=== PATIENT | male | born 1960 | race African-American/Black ===

== ENCOUNTER 2016-09-21 14:39 | Emergency (ER) | payer OTHER ==
[2016-09-21 14:44] VITALS: BP 162/99; PULSE 86; TEMP 98.3; BMI 26.3
[2016-09-21] MEDS ORDERED: ALBUTEROL SO4 2.5/IPRATROPIUM 0.5 INH SOL 3 ML VIAL.NEB. NEB ONE (16:55)
--- NOTE | 2016-09-21 16:55 | PDOC ---
History of Present Illness - General Chief Complaint: Cold Symptoms Stated Complaint: EXCTENDED FEVER/ FLU SYMPTOMS Time Seen by Provider: 09/21/16 16:11 History Source: Patient Exam Limitations: No Limitations - History of Present Illness Initial Comments: 09/21/16 16:53 My Chief Complaint: nasal congestion, dry cough chest tightness History of present illness: Patient is a 55-year-old male with a history of hypertension here today with a few days of flulike symptoms with fever, nasal congestion, dry cough with chest tightness. 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 Patient denies any shortness of breath. Patient denies any body aches. 09/21/16 16:59 Timing/Duration: intermittent (for 3 days) Severity: mild Associated Symptoms: reports: denies symptoms Past History - Past Medical History Allergies/Adverse Reactions: Allergies Allergy/AdvReac Type Severity Reaction Status Date / Time No Known Allergies Allergy Verified 09/21/16 14:40 Home Medications: Ambulatory Orders Lisinopril/Hydrochlorothiazide [Lisinopril-Hctz 10-12.5 mg Tab] 1 each PO DAILY 12/25/13 Azithromycin [Zithromax 250mg Tablets -] 250 mg PO UTDICT #6 tab 09/21/16 Guaifenesin Dm [Mucinex Dm -] 1 - 2 tab PO Q12H PRN #20 tab.er.12h MDD 4 HTN: Yes - Psycho/Social/Smoking Cessation Hx Suicidal Ideation: No Smoking History: Never smoked Have you smoked in the past 12 months: No Information on smoking cessation initiated: No Hx Alcohol Use: No Drug/Substance Use Hx: No Review of Systems - Review of Systems Able to Perform ROS?: Yes Constitutional: No: Symptoms Reported HEENTM: Yes: Nose Congestion Respiratory: Yes: Cough, Other (chest tightness). No: Shortness of Breath, SOB with Exertion, SOB at Rest, Stridor, Wheezing, Productive cough Cardiac (ROS): No: Symptoms Reported ABD/GI: No: Symptoms Reported : No: Symptoms Reported Musculoskeletal: No: Symptoms Reported Integumentary: No: Symptoms Reported *Physical Exam - Vital Signs Last Vital Signs Temp Pulse Resp BP Pulse Ox 98.3 F 86 18 162/99 100 09/21/16 14:42 09/21/16 14:42 09/21/16 14:42 09/21/16 14:42 09/21/16 14:42 - Physical Exam General Appearance: Yes: Appropriately Dressed HEENT: positive: TMs Normal, Nasal Congestion. negative: Tonsillar Exudate, Tonsillar Erythema, Rhinorrhea Neck: negative: Lymphadenopathy (R), Lymphadenopathy (L) Respiratory/Chest: positive: Lungs Clear, Normal Breath Sounds. negative: Chest Tender, Respiratory Distress Cardiovascular: positive: Regular Rhythm, Regular Rate, S1, S2 Integumentary: positive: Normal Color Neurologic: positive: Alert, Normal Response, Responsive Medical Decision Making - Medical Decision Making 09/21/16 17:00 Patient is a 55-year-old male with a history of hypertension here today with a few days of flulike symptoms with fever, nasal congestion, dry cough with chest tightness. 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 Patient denies any shortness of breath. Patient denies any body aches. 09/21/16 17:49 R/O infiltrate cough, nasal congestion, fever PLAN: xray chest PA/Lateral no infiltrate duoneb Azithromycin 250 mg 2 tablets today then 1 tab daily for following 4 days Mucinex DM 1-2 tabs every 12 hours for 5 days when necessary cough *DC/Admit/Observation/Transfer Diagnosis at time of Disposition: Cough, Nasal congestion Fever Qualifiers: Fever type: unspecified Qualified Code(s): R50.9 - Fever, unspecified - Discharge Dispostion Disposition: HOME Condition at time of disposition: Stable - Prescriptions Prescriptions: Guaifenesin Dm [Mucinex Dm -] 1 - 2 tab PO Q12H PRN #20 tab.er.12h MDD 4 PRN Reason: Cough Azithromycin [Zithromax 250mg Tablets -] 250 mg PO UTDICT #6 tab - Referrals Referrals: Martinez Irving MD [Primary Care Provider] - - Patient Instructions Additional Instructions: Follow-up with primary care provider within the next few days Return to emergency room if any shortness of breath Take ibuprofen or acetaminophen as needed as directed by anti tank missileman for fever Patient voiced understanding of discharge instructions and all QUESTIONS were answered
== END 2016-09-21 17:58 | disposition home or self-care (01) ==
LOC: JERFT 14:39
PROC: 3E0F7GC Introduction of Other Therapeutic Substance into Respiratory Tract, Via Natural or Artificial Opening (ICD-10-PCS; principal; 2016-09-21)
DX: R50.9 Fever, unspecified (principal); R05 Cough; I10 Essential (primary) hypertension
CPT/HCPCS: 71020-TC; 99281-25

== ENCOUNTER 2018-06-09 07:39 | Emergency (ER) | payer OTHER ==
[2018-06-09 07:51] VITALS: TEMP 98.6; BMI 26.6
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
[2018-06-09] MEDS ORDERED: METHOCARBAMOL 500 MG TABLET PO ONE (08:06)
[2018-06-09] MEDS ORDERED: NAPROXEN 500 MG TABLET (FP) PO ONE (08:06)
[2018-06-09] MEDS ORDERED: NAPROXEN 500 MG TABLET (FP) ONE (08:39)
[2018-06-09] MEDS ORDERED: METHOCARBAMOL 500 MG TABLET ONE (08:40)
[2018-06-09 11:29] VITALS: BP 131/97; PULSE 63
--- NOTE | 2018-06-09 13:22 | EKG ---
Test Reason : Blood Pressure : / mmHG Vent. Rate : 071 BPM Atrial Rate : 071 BPM P-R Int : 220 ms QRS Dur : 084 ms QT Int : 376 ms P-R-T Axes : 074 -20 030 degrees QTc Int : 408 ms SINUS RHYTHM WITH 1ST DEGREE A-V BLOCK POSSIBLE INFERIOR INFARCT , AGE UNDETERMINED ABNORMAL ECG NO PREVIOUS ECGS AVAILABLE Confirmed by MAMI COMBS MD ([id number]) on 06/09/2018 1:21:24 PM Referred By: Confirmed By:MAMI COMBS MD
== END 2018-06-09 11:30 | disposition home or self-care (01) ==
LOC: JER 07:39
DX: M79.1 Myalgia (principal); V43.52XA Car driver injured in collision with other type car in traffic accident, initial encounter; Y93.89 Activity, other specified; Y92.410 Unspecified street and highway as the place of occurrence of the external cause
CPT/HCPCS: 70450-TC; 71046-TC-FY; 72100-TC-FY; 72125-TC; 93005; 93010; 99283-25

== ENCOUNTER 2019-04-01 22:44 | Emergency (ER) | payer OTHER ==
[2019-04-01 23:14] VITALS: BP 136/87; PULSE 82; TEMP 98.2; BMI 26.6
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
[2019-04-02 00:32] LABS: BASO % 0.4 % (0-2.0); EOS % 3.3 % (0-4.5); HEMATOCRIT 38.2 % (35.4-49); HEMOGLOBIN 12.6 GM/dL (11.7-16.9); LYMPH % 39.7 % (8-40); MCH 28.2 pg (25.7-33.7); MCHC 32.9 g/dl (32.0-35.9); MEAN CELL VOLUME 85.9 fl (80-96); MEAN PLT VOLUME 9.9 fl (7.5-11.1); MONO % 13.1 % (3.8-10.2); NEUT % 43.5 % (42.8-82.8); PLATELET COUNT 160 K/MM3 (134-434); RBC 4.45 M/mm3 (4.00-5.60); RDW 13.8 % (11.9-15.9); WHITE BLOOD COUNT 5.4 K/mm3 (4.0-10.0)
[2019-04-02 01:05] LABS: BILIRUBIN,TOTAL 0.8 mg/dL (0.2-1); BLOOD UREA NITROGEN 21.1 mg/dL (7-18); CALCIUM 8.9 mg/dL (8.5-10.1); PHOSPHOROUS 2.3 mg/dL (2.5-4.9); POTASSIUM 3.6 mmol/L (3.5-5.1); TOT PROT 7.8 g/dl (6.4-8.2); URIC ACID 5.9 mg/dL (2.6-7.2)
[2019-04-03 04:10] LABS: HEP B CORE AB, TOT Positive (Negative)
== END 2019-04-02 00:37 | disposition home or self-care (01) ==
LOC: JER 22:44
DX: Z77.21 Contact with and (suspected) exposure to potentially hazardous body fluids (principal); W46.1XXA Contact with contaminated hypodermic needle, initial encounter; Y92.239 Unspecified place in hospital as the place of occurrence of the external cause; Y99.0 Civilian activity done for income or pay; Y93.9 Activity, unspecified; I10 Essential (primary) hypertension
CPT/HCPCS: 36415; 80053; 82465; 82977; 83615; 84100; 84478; 84550; 85025; 86317; 86704; 86706; 86803; 87340; 87389; 99282-25

== ENCOUNTER 2019-04-27 14:24 | Emergency (ER) | payer OTHER ==
--- NOTE | 2019-04-27 14:27 | PDOC ---
Rapid Medical Evaluation Time Seen by Provider: 04/27/19 14:26 Medical Evaluation: Allergies Allergy/AdvReac Type Severity Reaction Status Date / Time No Known Allergies Allergy Verified 06/09/18 07:49 04/27/19 14:26 HPI: Lower back pain after trying to lift a pt PE: No gross deficits ORDERS: Nothing Discharge Disposition - Diagnosis Musculoskeletal pain - Referrals - Patient Instructions - Post Discharge Activity
[2019-04-27 14:33] VITALS: BP 145/84; PULSE 84; TEMP 97.4; BMI 26.6
--- NOTE | 2019-04-27 15:58 | PDOC ---
History of Present Illness - General Chief Complaint: Back Pain Stated Complaint: LWR BACK PAIN Time Seen by Provider: 04/27/19 14:26 History Source: Patient Exam Limitations: No Limitations - History of Present Illness Initial Comments: 04/27/19 15:53 58 year old male with medical history of HTN and no significant surgical history with reports of lower back pain since Thursday. Patient reports pain after lifting a patient while at work, patient reports patient was sliding down to the floor due to being soaked in urine and he supported the patient on his own causing pain in his lower back. Denies numbness or tingling in lower limb. Occurred: reports: other (Thursday) Severity: reports: mild Pain Location: reports: back Method of Injury: Yes: other (heavy lifting) Modifying Factors: improves with: immobilization, pain medication Loss of Consciousness: no loss of consciousness Associated Symptoms (Fall): denies symptoms Past History - Travel Traveled outside of the country in the last 30 days: No Close contact w/someone who was outside of country & ill: No - Past Medical History Allergies/Adverse Reactions: Allergies Allergy/AdvReac Type Severity Reaction Status Date / Time No Known Allergies Allergy Verified 04/27/19 14:33 Home Medications: Ambulatory Orders Lisinopril/Hydrochlorothiazide [Lisinopril-Hctz 10-12.5 mg Tab] 1 each PO DAILY 12/25/13 Cyclobenzaprine HCl [Flexeril -] 5 mg PO HS #30 tablet 04/27/19 Naproxen 500 mg PO BID #20 tablet 04/27/19 COPD: No HTN: Yes - Immunization History Immunization Up to Date: Yes - Suicide/Smoking/Psychosocial Hx Smoking History: Smoker current status UNK Have you smoked in the past 12 months: No Information on smoking cessation initiated: No Hx Alcohol Use: No Drug/Substance Use Hx: No Trauma Specific PMHX - Complaint Specific PMHX Arthritis: No Back Injury: No Neck Injury: No Hx Sacro Iliac Joint Dysfunction: No Review of Systems - Review of Systems Able to Perform ROS?: Yes Is the patient limited Guatemalan proficient: No Constitutional: No: Chills, Fever, Weakness HEENTM: No: Cataracts, Ear Pain, Ear Discharge, Nose Pain, Nose Congestion, Tinnitus, Hearing Loss Respiratory: No: Orthopnea, Stridor, Wheezing Cardiac (ROS): Yes: See HPI. No: Edema, Lightheadedness, Palpitations ABD/GI: No: Difficulty Swallowing, Nausea, Poor Appetite, Poor Fluid Intake, Indigestion, Abdominal cramping : No: Discharge, Incontinence, Testicular Pain Musculoskeletal: Yes: Back Pain. No: Muscle Weakness, Neck Pain Integumentary: No: Erythema, Flushing, Lesions, Pruritus, Rash Neurological: No: Headache, Numbness, Tingling, Tremors Psychiatric: No: Stressors, Mood Swings Endocrine: No: Intolerance to Heat, Increased Urine, Unexplained Weight Gain *Physical Exam - Vital Signs Last Vital Signs Temp Pulse Resp BP Pulse Ox 97.4 F L 84 16 145/84 100 04/27/19 14:29 04/27/19 14:29 04/27/19 14:29 04/27/19 14:29 04/27/19 14:29 - Physical Exam General Appearance: Yes: Nourished, Appropriately Dressed HEENT: positive: EOMI, NENA, Pharynx Normal Neck: positive: Supple. negative: Lymphadenopathy (R), Lymphadenopathy (L) Respiratory/Chest: positive: Lungs Clear. negative: Respiratory Distress Cardiovascular: positive: Regular Rhythm, Regular Rate Musculoskeletal: positive: Normal Inspection, Other (tenderness with palpation in bilateral lower back , + pain with straight leg lift). negative: CVA Tenderness (R), CVA Tenderness (L) Extremity: positive: Normal Inspection, Normal Range of Motion Integumentary: positive: Normal Color Neurologic: positive: Fully Oriented, Alert ED Treatment Course - RADIOLOGY Radiology Studies Ordered: Category Date Time Status SPINE-LUMBAR SACRAL [RAD] Stat Radiology 04/27/19 15:50 Ordered Medical Decision Making - Medical Decision Making 04/27/19 16:00 58 year old male with medical history of HTN and no significant surgical history with reports of lower back pain since Thursday. Plan analgesia lumbar xray 04/27/19 17:36 negative xray of lumbar D/c home f/u with primary and orthopedic 04/27/19 20:08 *DC/Admit/Observation/Transfer Diagnosis at time of Disposition: Musculoskeletal pain, Lumbar back pain - Discharge Dispostion Disposition: HOME Condition at time of disposition: Good Decision to Admit order: No - Prescriptions Prescriptions: Cyclobenzaprine HCl [Flexeril -] 5 mg PO HS #30 tablet Naproxen 500 mg PO BID #20 tablet - Referrals Referrals: Martinez Irving MD [Primary Care Provider] - 3 days (call for follow up with process mold technician ) Ad Carvalho MD [Staff Physician] - Call tomorrow - Patient Instructions Printed Discharge Instructions: DI for Back Strain or Sprain Additional Instructions: Activity as tolerated Call orthopedic for follow up appointment May apply warm compress to area for 20 minutes 3 to 4 times daily - Post Discharge Activity Forms/Work/School Notes: Back to Work
[2019-04-27] MEDS ORDERED: KETOROLAC TROMETHAMINE 30 MG/1 ML VIAL IM ONE (16:31)
[2019-04-27] MEDS ORDERED: KETOROLAC TROMETHAMINE 30 MG/1 ML VIAL ONE (16:48)
== END 2019-04-27 19:05 | disposition home or self-care (01) ==
LOC: JERFT 14:24
PROC: 3E0233Z Introduction of Anti-inflammatory into Muscle, Percutaneous Approach (ICD-10-PCS; principal; 2019-04-27)
DX: M79.18 Myalgia, other site (principal); I10 Essential (primary) hypertension; X58.XXXA Exposure to other specified factors, initial encounter; Y93.89 Activity, other specified; Y92.89 Other specified places as the place of occurrence of the external cause; Y99.0 Civilian activity done for income or pay
CPT/HCPCS: 72100-TC-FY; 99281-25

== ENCOUNTER 2019-10-25 07:49 | Emergency (ER) | payer OTHER ==
[2019-10-25 07:57] VITALS: BMI 25.7
[2019-10-25] MEDS ORDERED: FAMOTIDINE 20 MG/50 ML IVPB 20 MG/50 ML MG IVPB ONE ×2 (08:02→08:07)
[2019-10-25] MEDS ORDERED: SODIUM CHLORIDE 1,000 ML IV STA (08:02)
[2019-10-25] MEDS ORDERED: ONDANSETRON 4 MG/2 ML VIAL IVPB ONE (08:02)
[2019-10-25] MEDS ORDERED: ONDANSETRON 4 MG/2 ML VIAL ONE (08:07)
--- NOTE | 2019-10-25 08:24 | PDOC ---
History of Present Illness - General Chief Complaint: Vomiting/Diarrhea Stated Complaint: NAUSEA/VOMITING Time Seen by Provider: 10/25/19 08:00 History Source: Patient Exam Limitations: No Limitations - History of Present Illness Travel History: No Initial Comments: 10/25/19 08:21 59y M with PMH of HTN presenting to ED for diarrhea, nausea and vomiting that started last night. Symptoms began at 10pm last night with constant watery diarrhea which is brown in color, no blood, and foul smelling. Patient says that he thinks symptoms are related to drinking apple juice that has been in his fridge for a few weeks. He endorses cramping alleviated by having bowel movements. Pt says that at 0600 he woke up to use the restroom but then started vomiting x2 (nbnb). Right now pt endorses a burning sensation in the chest. Denies recent travel, sick contacts, fevers, chills, back pain, headache, chest pain, sob, numbness/tingling, recent illnesses, recent antibiotic use. 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 PMH: see hpi PSH: none Allergies; nkda Social: denies Meds: Zestril Past History - Past Medical History Allergies/Adverse Reactions: Allergies Allergy/AdvReac Type Severity Reaction Status Date / Time No Known Allergies Allergy Verified 04/27/19 14:33 Home Medications: Ambulatory Orders Lisinopril/Hydrochlorothiazide [Lisinopril-Hctz 10-12.5 mg Tab] 1 each PO DAILY 12/25/13 Cyclobenzaprine HCl [Flexeril -] 5 mg PO HS #30 tablet 04/27/19 Naproxen 500 mg PO BID #20 tablet 04/27/19 Ondansetron [Zofran -] 4 mg PO TID PRN #5 tablet 10/25/19 COPD: No HTN: Yes - Immunization History Immunization Up to Date: Yes - Psycho Social/Smoking Cessation Hx Smoking History: Never smoked Have you smoked in the past 12 months: No Hx Alcohol Use: No Drug/Substance Use Hx: No Review of Systems - Review of Systems Constitutional: No: Chills, Fever, Weakness HEENTM: No: Symptoms Reported Respiratory: No: Symptoms reported Cardiac (ROS): No: Symptoms Reported ABD/GI: Yes: Diarrhea, Nausea, Vomiting, Abdominal cramping : No: Symptoms Reported Musculoskeletal: No: Symptoms Reported Integumentary: No: Symptoms Reported Neurological: No: Symptoms reported *Physical Exam - Vital Signs Last Vital Signs Temp Pulse Resp BP Pulse Ox 98.4 F 101 H 18 155/90 99 10/25/19 07:51 10/25/19 07:51 10/25/19 07:51 10/25/19 07:51 10/25/19 07:51 - Physical Exam General Appearance: Yes: Nourished, Appropriately Dressed. No: Apparent Distress HEENT: positive: EOMI, NENA, Normal ENT Inspection Neck: positive: Trachea midline, Supple. negative: Lymphadenopathy (R), Lymphadenopathy (L) Respiratory/Chest: positive: Lungs Clear, Normal Breath Sounds. negative: Crackles, Rales, Rhonchi, Stridor, Wheezing Cardiovascular: positive: Regular Rhythm, Regular Rate, S1, S2. negative: Edema , JVD, Murmur Vascular Pulses: Dorsalis-Pedis (R): 2+, Doralis-Pedis (L): 2+ Gastrointestinal/Abdominal: positive: Normal Bowel Sounds, Soft. negative: Tender, Distended, Guarding, Rebound, Tenderness Musculoskeletal: negative: CVA Tenderness Extremity: positive: Normal Capillary Refill. negative: Pedal Edema, Swelling, Calf Tenderness Integumentary: positive: Normal Color, Dry, Warm. negative: Rash Neurologic: positive: child nurse II-XII NML intact, Fully Oriented, Alert, Normal Mood/ Affect, Normal Response, Motor Strength 5/5 ED Treatment Course - LABORATORY CBC & Chemistry Diagram: 10/25/19 08:10 10/25/19 08:10 - Medications Given in the ED: ED Medications Discontinued Medications Generic Name Dose Route Start Last Admin Trade Name Freq PRN Reason Stop Dose Admin Ondansetron HCl 4 mg 10/25/19 08:02 10/25/19 08:10 Zofran Injection IVPB 10/25/19 08:03 4 mg ONCE ONE Administration Medical Decision Making - Medical Decision Making 10/25/19 09:03 59y M presenting to ED for diarrhea, n/v since last night. vitals: HR 101 otherwise wnl pt is comfortable appearing, no abdominal tenderness. suspect GE. will get labs to rule out other causes such as pancreatitis, cholecystitis. no abdominal tenderness; does not require imaging at this time. low suspicion for CDiff given length of symptoms, no fever. will obtain ekg, labs, lipase -ivf, pepcid, zofran. ekg: sinus with 1st degree block. no signs of acute ischemia. 10/25/19 10:19 pt feeling acid in the chest, will give maalox. labs wnl, trop negative. pt feeling better, will dc home with rx for zofran and dc instructions. dispo: home Discharge - Discharge Information Problems reviewed: Yes Clinical Impression/Diagnosis: Gastroenteritis Disposition: HOME - Admission No - Additional Discharge Information Prescriptions: Ondansetron [Zofran -] 4 mg PO TID PRN #5 tablet PRN Reason: Nausea - Follow up/Referral Referrals: Martinez Irving MD [Primary Care Provider] - - Patient Discharge Instructions Patient Printed Discharge Instructions: Diarrhea, DI for Vomiting -- Adult, Gastroenteritis Diet Additional Instructions: You were seen in the ER for diarrhea, vomiting and nausea. This is likely gastroenteritis which should resolve on it's own. [place] prescription for Zo[place]; take as directed. You can also take Pepcid two times per day if you continue to have GERD. You can also take Imodium for the diarrhea if you continue to have it for 2 days. These medications can be found over the counter. Keep yourself well hydrated. Stick to a liquid diet and clear soups for the next day, you can move on to soft solids and then a normal diet. Come back to the emergency room if you start having blood in the stool, develop fever, develop rash, develop weakness in the legs or if any new or concerning symptom develops. Thank you - Post Discharge Activity Work/Back to School Note: Back to Work
[2019-10-25 08:27] LABS: BASO % 0.4 % (0-2.0); EOS % 2.9 % (0-4.5); HEMATOCRIT 46.4 % (35.4-49); HEMOGLOBIN 15.1 GM/dL (11.7-16.9); LYMPH % 27.6 % (8-40); MCH 27.8 pg (25.7-33.7); MCHC 32.5 g/dl (32.0-35.9); MEAN CELL VOLUME 85.4 fl (80-96); MONO % 8.3 % (3.8-10.2); NEUT % 60.8 % (42.8-82.8); PLATELET COUNT 205 K/MM3 (134-434); RBC 5.43 M/mm3 (4.00-5.60); RDW 13.8 % (11.9-15.9); WHITE BLOOD COUNT 7.5 K/mm3 (4.0-10.0)
[2019-10-25 09:15] LABS: ALBUMIN 4.4 g/dl (3.4-5.0); ALK PHOS 84 U/L (45-117); ANION GAP 8 MMOL/L (8-16); BILIRUBIN,TOTAL 0.2 mg/dL (0.2-1); BLOOD UREA NITROGEN 12.2 mg/dL (7-18); CALCIUM 9.8 mg/dL (8.5-10.1); CHLORIDE 103 mmol/L (98-107); CO2 24 mmol/L (21-32); GLUCOSE,RANDOM 118 mg/dL (74-106); LIPASE 156 U/L (73-393); POTASSIUM 4.1 mmol/L (3.5-5.1); SGOT/AST 22 U/L (15-37); SGPT/ALT 34 U/L (13-61); SODIUM 135 mmol/L (136-145); TOT PROT 9.2 g/dl (6.4-8.2)
[2019-10-25] MEDS ORDERED: MAG HYDROX/AL HYDROX/SIMETH 30 ML UNIT-DOSE CUP PO ONE (09:31)
[2019-10-25] MEDS ORDERED: MAG HYDROX/AL HYDROX/SIMETH 30 ML UNIT-DOSE CUP ONE (09:33)
--- NOTE | 2019-10-25 10:14 | PDOC ---
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 Patient was in usual state of good health, beginning last night around 10 PM began having watery diarrhea without blood, and had a few episodes of nonbloody nonbilious vomiting, last episode around 6:30 AM. Intermittent abdominal cramping resolved with vomiting/diarrhea, no fevers or chills or myalgias. No diet change, no recent travel, no recent antibiotics, no history of GI illness, had normal colonoscopy within the last 5 years. - Physicial Exam PE: 10/25/19 10:11 Vital signs normal, afebrile Patient is well-appearing ambulating in the emergency department. No jaundice or pallor, moist mucosa Heart is regular, rate on my examination is 80. Lungs are clear. Abdomen is benign, soft/nontender/nondistended. - Medical Decision Making 10/25/19 10:13 59-year-old male with nausea/vomiting/diarrhea since last night, benign abdominal exam without findings to suggest focal peritoneal process. Presentation seems most consistent with gastroenteritis, likely viral etiology. Despite custodial employee, not consistent with C. difficile at this time. Labs are within normal limits, no leukocytosis Symptomatically improved after IV fluids and medications Agrees with discharge plan on Zofran, understands return criteria, has PCP follow-up. Heart Score/ECG Review #1 ECG reviewed & interpreted by me at: 08:54 General ECG Interpretation: Sinus Rhythm, Normal Rate (81), Normal Intervals ( qtc 413), No acute ischemic changes (isolated q in III)
[2019-10-25 10:31] VITALS: BP 131/84; PULSE 81; TEMP 98.2
--- NOTE | 2019-10-25 13:00 | EKG ---
Test Reason : Blood Pressure : / mmHG Vent. Rate : 081 BPM Atrial Rate : 081 BPM P-R Int : 214 ms QRS Dur : 092 ms QT Int : 356 ms P-R-T Axes : 075 005 041 degrees QTc Int : 413 ms SINUS RHYTHM WITH 1ST DEGREE A-V BLOCK INFERIOR INFARCT (CITED ON OR BEFORE 09-JUN-2018) ABNORMAL ECG WHEN COMPARED WITH ECG OF 09-JUN-2018 07:55, NO SIGNIFICANT CHANGE WAS FOUND Confirmed by Delano Harmon MD ([id number]) on 10/25/2019 12:59:55 PM Referred By: Confirmed By:Delano Harmon MD
[2019-10-25 15:19] LABS: URINE APPEARANCE CLEAR; URINE BILIRUBIN NEGATIVE (NEGATIVE); URINE COLOR YELLOW; URINE GLUCOSE (UA) NEGATIVE (NEGATIVE); URINE KETONE NEGATIVE (NEGATIVE); URINE LEUK ESTERASE NEGATIVE (NEGATIVE); URINE NITRITE NEGATIVE (NEGATIVE); URINE PROTEIN NEGATIVE (NEGATIVE); URINE UROBILINOGEN 0.2 mg/dL (0.2-1.0)
== END 2019-10-25 10:31 | disposition home or self-care (01) ==
LOC: JER 07:49
PROC: 3E033GC Introduction of Other Therapeutic Substance into Peripheral Vein, Percutaneous Approach (ICD-10-PCS; principal; 2019-10-25)
PROC: 3E033GC Introduction of Other Therapeutic Substance into Peripheral Vein, Percutaneous Approach (ICD-10-PCS; 2019-10-25)
DX: K52.9 Noninfective gastroenteritis and colitis, unspecified (principal); I10 Essential (primary) hypertension
CPT/HCPCS: 36415; 80053; 81003; 83690; 84484; 85025; 87086; 93005; 93010; 99284-25; J7030

== ENCOUNTER 2019-10-27 08:13 | Emergency (ER) | payer OTHER ==
[2019-10-27 08:22] VITALS: BP 109/79; PULSE 80; TEMP 98; BMI 25.5
--- NOTE | 2019-10-27 09:08 | PDOC ---
History of Present Illness - General Chief Complaint: Vomiting/Diarrhea Stated Complaint: VOMITING,DIARHHEA Time Seen by Provider: 10/27/19 08:42 History Source: Patient Exam Limitations: Clinical Condition - History of Present Illness Initial Comments: 10/27/19 09:03 Patient with history of hypertension presented with complaint of persistent diarrhea and vomiting status post drinking stale apple juice 5 days ago. Patient was seen in the ED 3 days ago for same symptoms and all blood work including cardiac work-up was negative. Patient was hydrated and given IV Pepcid with patient felt better and discharged on Zofran but the patient report diarrhea has been persistent. Patient reported no vomiting since discharge until this morning after eating. Patient report unable to keep any food down as every time he eats he gets diarrhea episode right away. Denies fever, chills , body aches, recent travel or sick contacts. Denies bloody stool or mucus in stool. Patient work in the half-way as a nurse Is this a multiple visit Asthma Patient?: No Timing/Duration: other (4 days) Past History - Past Medical History Allergies/Adverse Reactions: Allergies Allergy/AdvReac Type Severity Reaction Status Date / Time No Known Allergies Allergy Verified 04/27/19 14:33 Home Medications: Ambulatory Orders Lisinopril/Hydrochlorothiazide [Lisinopril-Hctz 10-12.5 mg Tab] 1 each PO DAILY 12/25/13 Cyclobenzaprine HCl [Flexeril -] 5 mg PO HS #30 tablet 04/27/19 Naproxen 500 mg PO BID #20 tablet 04/27/19 Ciprofloxacin [Cipro (Restricted To Id)] 500 mg PO Q12H 7 Days #14 tablet Loperamide HCl [Loperamide] 2 mg PO Q8H PRN #12 capsule 10/27/19 Ondansetron [Zofran -] 4 mg PO TID PRN #5 tablet 10/27/19 metroNIDAZOLE [Flagyl -] 500 mg PO DAILY #14 tablet 10/27/19 COPD: No HTN: Yes - Immunization History Immunization Up to Date: Yes - Psycho Social/Smoking Cessation Hx Smoking History: Never smoked Have you smoked in the past 12 months: No Hx Alcohol Use: No Drug/Substance Use Hx: No Review of Systems - Review of Systems Able to Perform ROS?: Yes Is the patient limited [place]an proficient: No Constitutional: No: Chills, Fever, Malaise HEENTM: No: Symptoms Reported, See HPI, Eye Pain, Blurred Vision, Tearing, Recent change in vision, Double Vision, Cataracts, Ear Pain, Ocular Prothesis, Ear Discharge, Nose Pain, Nose Congestion, Tinnitus, Nose Bleeding, Hearing Loss , Throat Pain, Throat Swelling, Mouth Pain, Dental Problems, Difficulty Swallowing, Mouth Swelling, Other Respiratory: No: Symptoms reported, See HPI, Cough, Orthopnea, Shortness of Breath, SOB with Exertion, SOB at Rest, Stridor, Wheezing, Productive cough, Hemoptysis, Other Cardiac (ROS): No: Symptoms Reported, See HPI, Chest Pain, Edema, Irregular Heart Rate, Lightheadedness, Palpitations, Syncope, Chest Tightness, Other ABD/GI: Yes: Symptoms Reported, See HPI, Diarrhea, Nausea, Vomiting, Abdominal cramping (intermittent). No: Abd. Pain w/ defecation, Blood Streaked Bowels, Constipated, Difficulty Swallowing, Poor Appetite, Rectal Bleeding, Indigestion : No: Symptoms Reported, Discharge, Frequency Neurological: No: Symptoms reported All Other Systems: Reviewed and Negative *Physical Exam - Vital Signs Last Vital Signs Temp Pulse Resp BP Pulse Ox 98 F 80 16 109/79 98 10/27/19 08:20 10/27/19 08:20 10/27/19 08:20 10/27/19 08:20 10/27/19 08:20 - Physical Exam 10/27/19 09:07 GENERAL: Well developed, well nourished. Awake and alert. No acute distress. HEENT: Normocephalic, atraumatic. PERRLA, EOMI. No conjunctival pallor. Sclera are non-icteric. Moist mucous membranes. Oropharynx is clear. NECK: Supple. Full ROM. CARDIOVASCULAR: Regular rate and rhythm. No murmurs, rubs, or gallops. Distal pulses are 2+ and symmetric. PULMONARY: No evidence of respiratory distress. Lungs clear to auscultation bilaterally. No wheezing, rales or rhonchi. ABDOMINAL: Soft. Non-tender. Non-distended. No rebound or guarding. No organomegaly. Mild diffuse hyperactive bowel sounds. MUSCULOSKELETAL Normal range of motion at all joints. SKIN: Warm and dry. Normal capillary refill. No rashes. No jaundice. No cyanosis NEUROLOGICAL: Alert, awake, appropriate. Gait is normal without ataxia. PSYCHIATRIC: Cooperative. Good eye contact. Appropriate mood General Appearance: Yes: Nourished, Appropriately Dressed. No: Apparent Distress Medical Decision Making - Medical Decision Making 10/27/19 09:06 Patient with history of hypertension presented with complaint of persistent diarrhea and vomiting status post drinking stale apple juice 5 days ago. Patient was seen in the ED 3 days ago for same symptoms and all blood work including cardiac work-up was negative. Patient was hydrated and given IV Pepcid with patient felt better and discharged on Zofran but the patient report diarrhea has been persistent. Patient reported no vomiting since discharge until this morning after eating. Patient report unable to keep any food down as every time he eats he gets diarrhea episode right away. Denies fever, chills , body aches, recent travel or sick contacts. Denies bloody stool or mucus in stool. Patient work in the half-way as a nurse Clinical exam unremarkable with no abdominal tenderness on exam. Patient afebrile. Normal cardio and lung exam. Given persistent diarrhea episode, will send stool sample. Patient be discharged home on Cipro and Flagyl for possible bacterial gastroenteritis pending stool culture result with advised to increase fluid intake and continue prescribed Zofran PRN for nausea and vomiting with GI follow-up Discharge - Discharge Information Problems reviewed: Yes Clinical Impression/Diagnosis: Gastroenteritis Nausea & vomiting Qualifiers: Vomiting type: bilious vomiting Qualified Code(s): R11.14 - Bilious vomiting Condition: Stable Disposition: HOME - Admission No - Additional Discharge Information Prescriptions: Ciprofloxacin [Cipro (Restricted To Id)] 500 mg PO Q12H 7 Days #14 tablet Loperamide HCl [Loperamide] 2 mg PO Q8H PRN #12 capsule PRN Reason: diarrhea metroNIDAZOLE [Flagyl -] 500 mg PO DAILY #14 tablet Ondansetron [Zofran -] 4 mg PO TID PRN #5 tablet PRN Reason: Nausea - Follow up/Referral Referrals: Martinez Irving MD [Primary Care Provider] - - Patient Discharge Instructions Patient Printed Discharge Instructions: DI for Bacterial Gastroenteritis -- Adult Additional Instructions: Your stool is sent for culture which takes a few days to come back. You be treated empirically on antibiotics for symptoms. Take previously prescribed Zofran as needed for vomiting. Increase fluid intake. Follow-up with your GI as discussed - Post Discharge Activity Work/Back to School Note: Back to Work
== END 2019-10-27 10:03 | disposition home or self-care (01) ==
LOC: JER 08:13
DX: K52.9 Noninfective gastroenteritis and colitis, unspecified (principal); R11.14 Bilious vomiting; I10 Essential (primary) hypertension
CPT/HCPCS: 87045; 87046; 87177; 87209; 99283-25